=== PATIENT | female | born 1985 | race Caucasian/White ===

== ENCOUNTER 2016-08-11 12:18 | Emergency (ER) | payer OTHER | END 2016-08-11 14:15 | disposition home or self-care (01) | LOC: ER1 12:18 | DX: K02.9 Dental caries, unspecified (principal); J32.9 Chronic sinusitis, unspecified; F17.210 Nicotine dependence, cigarettes, uncomplicated; Z88.0 Allergy status to penicillin; Z88.1 Allergy status to other antibiotic agents | CPT/HCPCS: 99283 ==

== ENCOUNTER → 2020-06-14 | Outpatient (CLI) | payer OTHER ==
[~2020-06-14] MED LIST: COLACE 100MG C100 MG PO; IBUPROFEN600 MG PO; LORTAB 5-325 M1 EACH PO; PEPCID20 MG PO; PHENERGAN 12.12.5 M1 PO; PRENATAL TABLE1 EAC1 PO; ZANTAC150 MG PO
== END ==
LOC: HEART 5 14:27
DX: R06.2 Wheezing (principal); F17.210 Nicotine dependence, cigarettes, uncomplicated
CPT/HCPCS: 94010

== ENCOUNTER 2021-04-13 20:17 | Emergency (ER) | payer OTHER | END 2021-04-13 20:33 | disposition left against medical advice (07) | LOC: ER1 20:17 | DX: Z53.21 Procedure and treatment not carried out due to patient leaving prior to being seen by health care provider (principal) ==

== ENCOUNTER → 2021-06-21 | Outpatient (CLI) | payer OTHER ==
[2021-06-21 17:42] LABS: HEMOGLOBIN 15.3 gm/dl (12.3-15.3); RED BLOOD COUNT 4.82 M/UL (4.00-5.10); WHITE BLOOD COUNT 11.5 K/UL (4.5-11.0)
[2021-06-21 18:06] LABS: BUN/CREATININE RATIO 18 (0-10)
[2021-06-23 12:14] LABS: HBSAG SCREEN Negative (Negative); HEP A AB, IGM Negative (Negative); HEP B CORE AB, IGM Negative (Negative); HEP C VIRUS AB <0.1 (0.0-0.9)
== END ==
LOC: LAB 17:13
PROVIDERS: Nurse Practitioner Family
DX: R19.5 Other fecal abnormalities (principal); R53.83 Other fatigue
CPT/HCPCS: 36415; 80053; 80074; 83036; 84443; 85025

== ENCOUNTER → 2021-06-22 | Outpatient (CLI) | payer OTHER | LOC: CT 14:30 | DX: R10.13 Epigastric pain (principal); K59.00 Constipation, unspecified | CPT/HCPCS: 74170; Q9967 ==